=== PATIENT | female | born 1990 | race American Indian/Alaskan Native ===

== ENCOUNTER 2016-03-14 15:36 | Emergency (ER) | payer MEDICAID, OTHER ==
[2016-03-14] MEDS ORDERED: MOTRIN ONE (23:00)
[2016-03-14] MEDS ORDERED: MOTRIN PO ONE (23:01)
--- NOTE | 2016-03-14 23:02 | Emergency Department Report ---
ED Female HPI - General Chief complaint: Urogenital-Female Stated complaint: VIGINAL IRRITATION Time Seen by Provider: 03/14/16 23:00 Source: patient Mode of arrival: Ambulatory Limitations: No Limitations - History of Present Illness Initial comments: Patient here complaining of vaginal irritation and itching for approximately one week. She said the outside of her vagina is very painful and she has a history of herpes and her last episode break was 5 years ago and it feels the same. Denies any she reports she is having burning with urination. Denies any blood in her urine denies any fever or chills. Denies any nausea or vomiting. She says she took some [id number] medication with some relief. She says she noted small bumps on the outside of her vagina and is very painful. Pain is 8 out of 10 and burning. Denies any abdominal pain. She is not on any maintenance medication for herpes. She denies any back pain. She also reported that she got full STD testing last week and everything came back negative. She also reported that she had pelvic exams in the last week. MD Complaint: vaginal discharge, dysuria, other (herpes outbreak) Onset/Timin -: week(s) Location: labia Radiation: non-radiating Severity: severe Severity scale (0 -10): 8 Quality: burning Consistency: constant Improves with: movement Worsens with: urination Are you Now?: No Associated Symptoms: vaginal discharge, dysuria, rash. denies: vaginal bleeding , abdominal pain, nausea/vomiting, fever/chills, headaches, loss of appetite, hematuria, seizure, shortness of breath, syncope, weakness - Related Data Sexually active: Yes Previous Rx's Medication Instructions Recorded Last Taken Type Acyclovir [Acyclovir Ointment] 30 gm TP BID #1 tube 03/15/16 Unknown Rx Ibuprofen [Motrin] 600 mg PO Q8H PRN #15 tablet 03/15/16 Unknown Rx Nitrofurantoin [place]/M-Cryst 100 mg PO Q12HR #14 capsule 03/15/16 Unknown Rx [Macrobid CAP] Valacyclovir HCl [Valtrex] 1,000 mg PO TID #21 tablet 03/15/16 Unknown Rx Allergies Allergy/AdvReac Type Severity Reaction Status Date / Time No Known Allergies Allergy Verified 03/14/16 15:46 ED Review of Systems ROS: Stated complaint: VIGINAL IRRITATION Other details as noted in HPI Comment: All other systems reviewed and negative Constitutional: denies: chills, fever ENT: denies: ear pain, throat pain Respiratory: no symptoms reported Cardiovascular: denies: chest pain, palpitations, edema, syncope Gastrointestinal: denies: abdominal pain, nausea, vomiting, diarrhea Genitourinary: dysuria, discharge. denies: urgency, frequency, hematuria, abnormal menses, dyspareunia Musculoskeletal: denies: back pain, arthralgia Skin: lesions Neurological: denies: headache, weakness, numbness, paresthesias, confusion, abnormal gait, vertigo ED Past Medical Hx - Past Medical History Previous Medical History?: Yes Additional medical history: Herpes genitalia - Surgical History Past Surgical History?: No Additional Surgical History: Tonsillectomy - Family History Family history: no significant - Social History Smoking Status: Never Smoker Substance Use Type: Alcohol - Medications Home Medications: Home Medications Medication Instructions Recorded Confirmed Last Taken Type Acyclovir [Acyclovir Ointment] 30 gm TP BID #1 tube 03/15/16 Unknown Rx Ibuprofen [Motrin] 600 mg PO Q8H PRN #15 tablet 03/15/16 Unknown Rx Nitrofurantoin [place]/M-Cryst 100 mg PO Q12HR #14 capsule 03/15/16 Unknown Rx [Macrobid CAP] Valacyclovir HCl [Valtrex] 1,000 mg PO TID #21 tablet 03/15/16 Unknown Rx ED Physical Exam - General Limitations: No Limitations General appearance: alert, in no apparent distress - Head Head exam: Present: atraumatic, normocephalic, normal inspection - Eye Eye exam: Present: normal appearance, PERRL Pupils: Present: normal accommodation - ENT ENT exam: Present: normal exam, normal orophraynx, mucous membranes moist, TM's normal bilaterally, normal external ear exam - Neck Neck exam: Present: normal inspection, full ROM. Absent: tenderness, meningismus, lymphadenopathy - Respiratory Respiratory exam: Present: normal lung sounds bilaterally. Absent: respiratory distress - Cardiovascular Cardiovascular Exam: Present: regular rate, normal rhythm, normal heart sounds - GI/Abdominal GI/Abdominal exam: Present: soft, normal bowel sounds. Absent: distended, tenderness, guarding, rebound, rigid - External exam: Present: erythema, lesions. Absent: swelling, lacerations, ecchymosis, bleeding - Expanded Exam Expanded Female exam: Present: herpetic lesions, vulvar erythema, vulvar tenderness. Absent: vaginal laceration, tissue present in vagina - Extremities Exam Extremities exam: Present: normal inspection, full ROM, normal capillary refill. Absent: tenderness, pedal edema, joint swelling, calf tenderness - Back Exam Back exam: Present: normal inspection, full ROM. Absent: tenderness, CVA tenderness (R), CVA tenderness (L), muscle spasm, paraspinal tenderness, vertebral tenderness, rash noted - Neurological Exam Neurological exam: Present: alert, oriented X3, normal gait - Psychiatric Psychiatric exam: Present: normal affect, normal mood - Skin Skin exam: Present: warm, dry, intact, normal color, vesicles (lesions which are vesicular noted to the vaginal area) ED Course Vital Signs 03/14/16 03/14/16 15:47 23:08 Temperature 98.1 F Pulse Rate 84 Respiratory 16 18 Rate Blood Pressure 133/85 O2 Sat by Pulse 100 Oximetry - Reevaluation(s) Reevaluation #1: 03/15/16 00:14 Motrin 800 mg in emergency room for vaginal pain. ED Medical Decision Making - Lab Data Lab Results 03/14/16 Range/Units 22:55 Urine Color Yellow (Yellow) Urine Turbidity Cloudy (Clear) Urine pH 5.0 (5.0-7.0) Ur Specific [place] 1.026 (1.003-1.030) Urine Protein 30 mg/dl (Negative) mg/dL Urine Glucose (UA) Neg (Negative) mg/dL Urine Ketones Neg (Negative) mg/dL Urine Blood Neg (Negative) Urine Nitrite Neg (Negative) Ur Reducing Substances Not Reportable Urine Bilirubin Neg (Negative) Urine Ictotest Not Reportable Urine Urobilinogen 2.0 (<2.0) mg/dL Ur Leukocyte Esterase Lg (Negative) Urine WBC (Auto) 44.0 H (0.0-6.0) /HPF Urine RBC (Auto) 13.0 (0.0-6.0) /HPF U Epithel Cells (Auto) 25.0 H (0-13.0) /HPF Urine Bacteria (Auto) 1+ (Negative) /HPF Urine Mucus 3+ /HPF Urine HCG, Qual Negative (Negative) Urine culture pending - Medical Decision Making ED course: Patient given Motrin 800 mg in emergency room for vaginal pain. I discussed the patient that she has a breakout of herpes and will be treated with topical and oral antiviral medication. I also discussed with her that her urine came back positive for urinary tract infection and will be treated with antibiotic. Discussed with her that she is not and that I sent her urinalysis for culture which should return in 3-5 days and will call her if antibiotic for urinary tract infection needs to be changed. She patient she needs to increase her fluid intake and follow up with primary care physician in 3-5 days for herpes outbreak and urinary tract infection. She reports understanding of discharge instruction and discharged home in stable condition with prescription for Motrin, Zovirax cream, Valcyclovir and Macrobid. Critical care attestation.: If time is entered above; I have spent that time in minutes in the direct care of this critically ill patient, excluding procedure time. ED Disposition Clinical Impression: Acute cystitis without hematuria Genital herpes Qualifiers: Herpes simplex infection site: vulvovaginitis Qualified Code(s): A60.04 - Herpesviral vulvovaginitis Disposition: DISCHARGED TO HOME OR SELFCARE Is pt being admited?: No Does the pt Need Aspirin: No Condition: Stable Instructions: Genital Herpes Simplex (ED), Urinary Tract Infection in Women (ED ) Additional Instructions: Please follow up with primary care physician in 3-5 days. Please take Medication as prescribed. Please increase her fluid intake Please refrain from sexual activity until lesions on the vaginal area are healed Practice safe sex Prescriptions: Acyclovir [Acyclovir Ointment] 30 gm TP BID #1 tube Nitrofurantoin [place]/M-Cryst [Macrobid CAP] 100 mg PO Q12HR #14 capsule Ibuprofen [Motrin] 600 mg PO Q8H PRN #15 tablet PRN Reason: Pain Valacyclovir HCl [Valtrex] 1,000 mg PO TID #21 tablet Referrals: PRIMARY CARE, [Primary Care Provider] - 3-5 Days Forms: Accompanied Note, Work/School Release Form(ED)
[2016-03-14 23:39] LABS: Bacteria,Urine 1+ /HPF (Negative); Bilirubin,Urine NEG (Negative); Blood,Urine NEG (Negative); Ketones,Urine NEG (Negative); Leukocyte Esterase,Urine LG (Negative); Mucus,Urine 3+ /HPF; Nitrite,Urine NEG (Negative)
[2016-03-15 00:53] VITALS: BP 129/79
== END 2016-03-15 00:35 | disposition home or self-care (01) ==
LOC: ED 15:36
DX: N30.00 Acute cystitis without hematuria (principal); A60.04 Herpesviral vulvovaginitis; Z90.89 Acquired absence of other organs
CPT/HCPCS: 81001; 81025; 87086; 99282